=== PATIENT | male | born 1935 | race Caucasian/White ===

== ENCOUNTER → 2024-01-18 13:09 | Outpatient (REF) | payer MEDICARE, SELFPAY | LOC: RCS 13:09 | PROVIDERS: ATTENDING PHYSICIAN Internal Medicine Cardiovascular Disease; FAMILY PHYSICIAN Family Medicine | DX: I48.91 Unspecified atrial fibrillation (principal) | CPT/HCPCS: 93225; 93226 ==

== ENCOUNTER 2024-04-26 06:23 | Day surgery (SDC) | payer MEDICARE, SELFPAY ==
[2024-04-26] VITALS (9 sets, daily range): BP systolic 140–182; BP diastolic 67–100; BMI 27.0
--- NOTE | 2024-04-26 11:00 | ITS.CL.PACE ---
House Builder - Pacemaker Implant
Pacemaker Implant
Procedure Report:
Date of Procedure: April 25, 2024.
Procedure: Pacemaker Implantation. Leftupper extremity venogram.
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 Afib with very sow ventricular response resulting in symptoms.
Performing physician: Yan Donaldson MD., [facility].
Implants:
Pulse Generator: Medtronic; Model# W1DR01; Serial# [id number].
RV Lead: Medtronic; Model# 3830-69cm; Serial# [id number].
Technique: A time out was performed. A 10 mL upper extremity venogram demonstrated patent left axillary, cephalic, and subclavian veins. The procedure site was identified. The patient was anesthetized by the anesthesia service. Preoperative
cefazolin was administered. The patient was prepped and draped in the usual fashion. Local anesthetic was applied to the left prepectoral subcutaneous tissue. A 3 inch incision was made along the left deltopectoral groove. Dissection was carried to
the fascia. The left cephalic vein was easily isolated and proximal and distal control with 2-0 Vicryl suture. Using a micropuncture needle to access the cephalic vein under direct visualization a glide type wire was advanced into the central
circulation. A 7 Fr hemostatic peel away introducer sheath was placed over the wire. The RV lead was placed using utilizing the Enventumtronic His delivery catheter ([id number]) that was advanced to the left bundle area as confirmed by fluoroscopy in the
YAKUT and MURRAY projections. The lead tip was advanced. PVC morphology was reviewed. When a satisfactory location was identified (W pattern observed) the lead was screwed into position with serial turns. Septal engagement was confirmed with gentle
torque applied to the guide sheath. After each series of turns (2-3) unipolar sensed morphology and impedance, and paced morphology of V1 was analyzed. The lead was further advanced until satisfactory morphology and electrical characteristics were
confirmed. The RV lead was placed in the second location evaluated. The long guiding sheath was cut and removed from the RV without change in lead position, impedance, sensing, or capture. The ventricular lead was secured to the pectoralis muscle
and fascia with two 0-silk sutures. 8 volt pacing did not capture the diaphragm. A subcutaneous pocket was created with Bovie cautery. Hemostasis was excellent. The lead was appropriately attached to the device. The pocket was irrigated with
antibiotic solution. The device and lead were placed in the pocket. The incision was closed in three layers with absorbable suture. Steri-strips and a silver impregnated dressing were placed. Estimated blood loss was less estimated at 3 ml. There
were no complications. Fluoroscopy: time 4.2 minutes and DAP 1.67 GyCM2. The device was then interrogated after skin closure.
Lead Analysis:
RV lead (bipolar): R: 16.8 mV; Threshold: 0.5 V @ 0.4 ms; Impedance: 893 ohms.
RV lead (unipolar): R: 18 mV; Threshold: 0.5 V @ 0.4 ms; Impedance: 722 ohms.
Paced QRS characteristics: V1 has Qr morphology and measures 124 ms in duration, LVAT (stim to peak V5/V6) is 72 ms, and R peak V1 to R peak V6 is 52 ms.
Final Programming: VVIR 60-130 bpm.
Conclusion: Uncomplicated Medtronic conduction system pacemaker implant. The RV selectively captures the left bundle conduction system. The pacing system is MRI conditional.
Recommendation: Routine post pacemaker care.
cc: Viktoria Montesinos MD.
--- NOTE | 2024-04-26 14:00 | PTCARENOTE ---
Pt received post pacer at 1000. Left arm immobilizer intact. Left pacer pressure dressing dry and intact. Pt denies any pain or discomfort. Voiding clear yellow urine in the urinal.
--- NOTE | 2024-04-26 14:24 | CM ---
Chart reviewed. Patient is independent of ADLS, lives alone in a 1st floor apartment, [address], ambulates with a SPC. Plan is for the patient to return home. CM to follow
[2024-04-26] MEDS: ANCEF 5 IV ×2 (14:26→21:22)
[2024-04-26] MEDS: FLUSH (NSS) 1 FLUSH IV (14:26)
[2024-04-26] MEDS: PRAVACHOL 20 MG PO (17:02)
--- NOTE | 2024-04-26 17:32 | PTCARENOTE ---
Pt assisted oob to the chair with one assist. No c/o of pain or discomfort.
[2024-04-26] MEDS: FEOSOL 325 MG PO (20:10)
[2024-04-26] MEDS: TYLENOL 650 MG PO (23:53)
[2024-04-27 03:36] VITALS: BP 153/74
[2024-04-27 04:43] LABS: Hemoglobin 15.8 g/dL (13.0-18.0); Mean Corp Hgb Conc. 34.3 g/dL (33.0-37.0); Mean Corpuscular Hgb 30.5 pg (27.0-31.0); Mean Corpuscular Volume 88.8 fL (80.0-94.0); Mean Platelet Volume 11.9 fL (7.4-10.4); Platelet Count 178 10^3/uL (130-400); Red Blood Cell Count 5.18 10^6/uL (4.70-6.10); Red Cell Dist. Width 13.6 % (11.5-14.5); White Blood Cell Count 8.4 10^3/uL (4.8-10.8)
[2024-04-27 05:04] LABS: Blood Urea Nitrogen 15 mg/dl (9-20); Calcium 9.5 mg/dl (8.4-10.2); Carbon Dioxide 28 mmol/L (22-30); Chloride 102 mmol/L (98-107); Estimated Creatinine Clearance 55 ml/min; Glucose 94 mg/dl (70-99); Magnesium 2.1 mg/dl (1.6-2.3); Potassium 3.9 mmol/L (3.5-5.1); Sodium 142 mmol/L (135-145); eGFR > 60.00
--- NOTE | 2024-04-27 05:21 | PTCARENOTE ---
PT VPaced on monitor. AAOx3 VSS. Left chest with Mild discomfort. Denies SOB. Ambulates with x1 assist and single point cane
[2024-04-27 07:11] VITALS: BP 147/82
[2024-04-27] MEDS: NORVASC 5 MG PO (08:26)
[2024-04-27] MEDS: FEOSOL 325 MG PO (08:26)
[2024-04-27] MEDS: ZESTRIL 40 MG PO (08:27)
[2024-04-27] MEDS: ZYLOPRIM 100 MG PO (08:27)
[2024-04-27] MEDS: NORVASC 2.5 MG PO (08:28)
--- NOTE | 2024-04-27 08:42 | W.PN.CARDCBS ---
Addendum entered and electronically signed by Yan Donaldson MD 04/27/24 10:02:
I saw and examined the patient.
The PRODUCTION QUALITY ANALYST's note was reviewed and I agree with the note.
Comment: Pacer site, tele, ekg, cxr all very good. f/u arranged, incision care, and arm restrictions reviewed. Home today.
Original Note:
Today's Communication / Plan
-
resume eliquis tonight
incision check next week
home today
Impression / Plan
-
PCP: Viktoria Montesinos MD
CDY: Julio César Donaldson MD
88 y/o, experiencing dizziness and feeling like he might pass out. Holter in 01/2023 with AFib, 19% PVC burden, and pauses up to 3.5 seconds. Now with non reversible symptomatic bradycardia, presents for SC PPM implant.
IMPRESSION/PLAN:
Non reversible symptomatic bradycardia
AFib w/slow ventricular response
s/p SC PPM implant, 04/26/24
tele- Vpaced w/underlying AFib
device site stable
post cxr w/stable lead position, no pneumothorax
[id number]- holding eliquis and will resume tonight at usual time
activity limitations reviewed
incision check in 1 week as scheduled
home today
HTN- modestly elevated- has not taken BP meds yet today
will monitor
HLD- continue statin
Anemia- stable, Hgb 15
Osteoarthritis
Gout
Melanoma
Progress Note - Pants Busheler
Subjective
Date of Service: April 27, 2024
Denies cp/palps/dyspnea
oob ambulating
device site without pain
Objective
Labs:
04/27/24 03:50
04/27/24 03:50
Labs
Hgb 15.8 g/dL (13.0-18.0) 04/27/24 03:50
Hct 46.0 % (39.0-52.0) 04/27/24 03:50
Plt Count 178 10^3/uL (130-400) 04/27/24 03:50
Sodium 142 mmol/L (135-145) 04/27/24 03:50
Potassium 3.9 mmol/L (3.5-5.1) 04/27/24 03:50
BUN 15 mg/dl (9-20) 04/27/24 03:50
Creatinine 0.9 mg/dL (0.7-1.3) 04/27/24 03:50
Glucose 94 mg/dl (70-99) 04/27/24 03:50
Vital Signs and I&O:
Vital Signs
Temp Pulse Resp BP Pulse Ox
99.1 F 68 20 147/82 95
04/27/24 07:08 04/27/24 08:26 04/27/24 07:08 04/27/24 08:26 04/27/24 07:08
Vital Signs
Temp Pulse Resp BP Pulse Ox
99.1 F 68 20 147/82 95
04/27/24 07:08 04/27/24 08:26 04/27/24 07:08 04/27/24 08:26 04/27/24 07:08
Intake & Output
04/25/24 04/26/24 04/27/24 04/28/24
06:59 06:59 06:59 06:59
Output Total 575 / 575
Balance -575 / -575
Physical Exam
Physical Exam
AAOx3, MAEE 5/5
RRR S1 S2 no murmurs
CTA bilat, non labored
Left acw w/aquacel dressing CDI, no ht/bleeding, non tender
soft abd, + bs
bilat extremities w/palpable distal pulses, no edema
--- NOTE | 2024-04-27 08:50 | W.DS.TRANS ---
DC Summary - Wrapper Cashier
-
Discharge Instructions:
Sleep Apnea Risk Low
Discharge Diagnosis/Procedures Pacemaker placement
Diet Low Cholesterol
Driving Restrictions No driving for 1 week
Bathing Restrictions OK to Shower
Instructions:
Stand-Alone Forms: DC Inst - Implanted Device
Changes to Home Medications: No
Discharge Medications:
DC Medications w/original date entered in [facility]
allopurinol 100 mg tablet 100 mg PO DAILY Gout 04/27/23
amlodipine 5 mg tablet 5 mg PO DAILY Blood Pressure 04/27/23
apixaban 5 mg tablet (Eliquis) 5 mg PO BID 04/27/23
lisinopril 40 mg tablet 40 mg PO DAILY 04/27/23
pravastatin 20 mg tablet 20 mg PO QPM 04/27/23
amlodipine 2.5 mg tablet 2.5 mg PO DAILY 04/26/24
ferrous sulfate 325 mg (65 mg iron) tablet 325 mg PO BID 04/26/24
Home Medication Changes
Pending Results: No
[2024-04-27 09:30] VITALS: BMI 26.8
== END 2024-04-27 09:38 | disposition home or self-care (01) ==
LOC: CATH 06:23
PROVIDERS: Nurse Practitioner Adult Health; ATTENDING PHYSICIAN Internal Medicine Cardiovascular Disease; FAMILY PHYSICIAN Family Medicine
DX: I49.5 Sick sinus syndrome (principal); I48.91 Unspecified atrial fibrillation; I10 Essential (primary) hypertension; E78.5 Hyperlipidemia, unspecified; Z85.820 Personal history of malignant melanoma of skin; M10.9 Gout, unspecified; M19.90 Unspecified osteoarthritis, unspecified site; D64.9 Anemia, unspecified; Z79.01 Long term (current) use of anticoagulants
CPT/HCPCS: 33207; C1769; C1892; C1887; 71045; 80048; 83735; 85027; 93005; C1786; C1898; Q9967